=== PATIENT | male | born 1990 | race Caucasian/White ===

== ENCOUNTER 2021-10-13 20:38 | Emergency (ER) | payer BC, OTHER ==
[2021-10-13] MEDS ORDERED: Amoxicillin/Clavulanate K 875-125 MG Tab PO ONE (20:54)
[2021-10-13] MEDS ORDERED: Ondansetron 4 MG Tab.DIS PO ONE (20:54)
[2021-10-13] MEDS ORDERED: Lidocaine 1% 5 ML VIAL INJECT ONE (20:54)
[2021-10-13] MEDS ORDERED: Bacitracin Oint 1 GM U/D Packet TOP ONE ×3 (20:54→21:32)
[2021-10-13] MEDS ORDERED: Diphtheria,Pertussis(Acell),Tetanus Vaccine 0.5 ML Syringe IM ONE (20:54)
[2021-10-13] MEDS ORDERED: Acetaminophen/HYDROcodone 325-5 MG Tab PO ONE (20:54)
[2021-10-13] MEDS ORDERED: Acetaminophen/HYDROcodone 325-10 MG Tab PO ONE (21:42)
== END 2021-10-13 21:53 | disposition home or self-care (01) ==
LOC: MW.ED 20:38
DX: S51.852A Open bite of left forearm, initial encounter (principal); Z23 Encounter for immunization; W54.0XXA Bitten by dog, initial encounter
CPT/HCPCS: 12004; 73090; 90471; 90715; 99283; A9270

== ENCOUNTER 2021-10-18 06:51 | Emergency (ER) | payer BC ==
[2021-10-18 08:44] LABS: CARBON DIOXIDE,CO2 27.9 mmol/L (21.0-32.0)
== END 2021-10-18 09:12 | disposition home or self-care (01) ==
LOC: MW.ED 06:51
DX: Z48.00 Encounter for change or removal of nonsurgical wound dressing (principal); S41.152D Open bite of left upper arm, subsequent encounter; W54.0XXD Bitten by dog, subsequent encounter
CPT/HCPCS: 36415; 80053; 85025; 99283